=== PATIENT | male | born 1980 | race Hispanic/Latino ===

== ENCOUNTER 2024-07-05 00:07 | Emergency (ER) | payer SELFPAY ==
[~2024-07-05] VITALS: Ht 167.6 cm; Wt 65.8 kg
--- NOTE | 2024-07-05 00:24 | ERN ---
General Chief Complaint: FOOT INJURY/PAIN Stated Complaint: LEFT FOOT PAIN Time Seen by MD: 00:17 Time Seen by Midlevel: 00:17 Source: patient History of Present Illness Initial Comments Patient is a 44-year-old male with no significant past medical history presenting to the emergency department with left foot pain. Patient reports noticing a masslike structure on the top left foot. It has been ongoing for the last two months. Today he noticed an increase in pressure around the area so decided to report to the ER for further evaluation. Patient has not seen a primary care doctor for this and has not taken [id number]-ivl-lpluqhd medication. Denies any direct trauma to the area. Allergies: Coded Allergies: No Known Allergies (Unverified Allergy, Unknown, 07/05/24) Past Medical History Past Medical History: No Pertinent History Past Surgical History: Other Surgical History Other: LEFT KNEE ROS Dictation CONSTITUTIONAL: Negative except for HPI HEAD/FACE: Negative except for HPI EENT: Negative except for HPI RESPIRATORY: Negative except for HPI GASTROINTESTINAL/ABDOMINAL: Negative except for HPI GENITOURINARY: Negative except for HPI MUSCULOSKELETAL: Negative except for HPI INTEGUMENTARY: Negative except for HPI NEUROLOGICAL/PSYCH: Negative except for HPI HEMATOLOGIC/LYMPHATIC: Negative except for HPI All Systems Negative, Except as noted above. 13 point review of systems assessed and all negative except for above. Physical Exam Physical Exam Dictation PHYSICAL EXAM: GENERAL: alert,, awake oriented x 3 HEENT: EOMI, Sclera non icteric, moist mucosa NECK: Supple, no JVD, trachea midline LUNGS: Clear breath sounds bilaterally. No wheezes HEART: Regular rate and rhythm. Normal S1 and S2, without murmurs ABD: Abdomen soft, nontender. Bowel sounds present EXT: There is a 2 x 2 cm cystic-like structure to the dorsal aspect of the left foot consistent with a lipoma. NEURO: Alert and oriented to person, follows commands MDM MDM: Patient is a 44-year-old male with no significant past medical history presenting to the emergency department with left foot pain. Patient reports noticing a masslike structure on the top left foot. It has been ongoing for the last two months. Today he noticed an increase in pressure around the area so decided to report to the ER for further evaluation. Patient has not seen a primary care doctor for this and has not taken qehm-sro-jhrhnhb medication. Denies any direct trauma to the area. On physical examination the patient was in no acute distress. Initial vital signs are stable. There is a cystic like structure to the dorsal aspect of the left foot consistent with a lipoma. The cystic like structure is mobile and nontender. There was no erythema, or in duration. No signs of abscess. Patient will need to follow up with Dermatology or General surgery outpatient for excision. Patient agrees with this plan and is comfortable with discharge. Differential diagnosis: Lipoma, cellulitis, abscess There are no social concerns with this patient. Prescription drug management Prescriptions will include: None Medical management and examination interpretation discussions were had by me with other qualified healthcare professionals as indicated for the patient's care. ED Course Vital Signs Date Time Temp Pulse Resp B/P (MAP) Pulse Ox O2 Delivery O2 Flow Rate FiO2 07/05/24 00:31 98.6 66 20 122/66 100 Room Air* 0 21 07/05/24 00:08 98.1 84 16 122/78 98 Room Air DX & DISP Disposition: Discharge Departure Impression: Primary Impression: Lipoma Condition: Stable Additional Instructions: Your physical examination is consistent with the lipoma to your left foot. You will need to see a machine assembler for puller over or a general surgery and removal if it is causing discomfort. Please follow up with your primary care doctor for further evaluation. No need for emergent intervention at this time. Time of Disposition: 00:24 I have reviewed the case, and I agree with, Diagnosis and Plan I performed the substantive portion of the visit. I have reviewed and personally made and approve the management plan that is documented in the note by myself or the OMAR. I acknowledge for responsibility for the patient's management plan. BYRON MUÑOZ Jul 05, 2024 00:24
[2024-07-05 00:31] VITALS: BP 122/66; PULSE 66; RESP 20; TEMP 98.6; O2SAT 100
== END 2024-07-05 00:34 | disposition home or self-care (01) ==
LOC: EDH 00:07
DX: D17.24 Benign lipomatous neoplasm of skin and subcutaneous tissue of left leg (principal)
CPT/HCPCS: 99281